=== PATIENT | female | born 1945 | race Caucasian/White ===

== ENCOUNTER 2021-06-09 13:59 | Outpatient (CLI) | payer OTHER, MEDICARE, SELFPAY ==
--- NOTE | ~2021-06-09 | DEXA_ITS ---
Bone Density Report Name: Ct Carbone I Age: 75 Sex: Female Ethnicity: White Date of : 1945 Indication: osteopenia; monitoring treatment; height loss; postmenopausal Referring Provider: Cali Bhagat Study: Bone densitometry was performed. Exam Date: June 09, 2021 Accession number: [id number] Bone Density: Region BMD T-score Z-score Classification AP Spine (L1-L4) 0.910 -1.2 1.1 Osteopenia Femoral Neck (Left) 0.670 -1.6 0.4 Osteopenia Total Hip (Left) 0.736 -1.7 0.1 Osteopenia Total Hip Bilateral Avg 0.711 -1.9 -0.2 Osteopenia Femoral Neck (Right) 0.655 -1.7 0.3 Osteopenia Total Hip (Right) 0.685 -2.1 -0.4 Osteopenia World Health Organization criteria for BMD impression classify patients as: Normal (T-score at or above -1.0), Osteopenia (T-score between -1.0 and -2.5), or Osteoporosis (T-score at or below -2.5). 10-year Fracture Risk: FRAX not reported because: Treated for osteoporosis Previous Exams: Region Exam Age BMD T-score BMD Change BMD Change Date g/cm2 vs Baseline vs Previous AP Spine(L1-L4) 06/09/2021 75 0.910 -1.2 0.025(2.9%)# 0.052(6.0%)* 05/15/2019 73 0.858 -1.7 -0.027(-3.0%)# 0.009(1.0%) 04/16/2017 71 0.850 -1.8 -0.035(-4.0%)# 0.012(1.4%) 04/12/2015 69 0.838 -1.9 -0.047(-5.3%)# -0.048(-5.4%)# 04/08/2013 67 0.886 -1.5 0.001(0.1%)# -0.048(-5.2%)# 04/06/2011 65 0.934 -1.0 0.049(5.5%)* -0.017(-1.7%) 03/24/2009 63 0.951 -0.9 0.066(7.4%)* 0.056(6.3%)* 01/10/2007 61 0.894 -1.4 0.009(1.0%) 0.009(1.0%) 06/13/2004 58 0.885 -1.5 Total Hip(Left) 06/09/2021 75 0.736 -1.7 0.036(5.1%)# 0.046(6.6%)* 05/15/2019 73 0.691 -2.1 -0.010(-1.4%)# -0.025(-3.5%) 04/16/2017 71 0.716 -1.9 0.015(2.1%)# -0.007(-0.9%) 04/12/2015 69 0.722 -1.8 0.022(3.1%)# 0.017(2.4%)# 04/08/2013 67 0.706 -1.9 0.005(0.7%)# 0.017(2.5%)# 04/06/2011 65 0.689 -2.1 -0.012(-1.7%) -0.017(-2.4%) 03/24/2009 63 0.705 -1.9 0.005(0.7%) 0.028(4.1%)* 01/10/2007 61 0.677 -2.2 -0.023(-3.3%) -0.023(-3.3%) 06/13/2004 58 0.701 -2.0 Total Hip(Right) 06/09/2021 75 0.685 -2.1 0.024(3.6%)# 0.004(0.6%) 05/15/2019 73 0.681 -2.1 0.020(3.0%)# 0.010(1.6%) 04/16/2017 71 0.671 -2.2 0.010(1.5%)# 0.001(0.2%) 04/12/2015 69 0.670 -2.2 0.008(1.3%)# 0.003(0.5%)# 04/08/2013 67 0.666 -2.3 0.005(0.8%)# 0.001(0.2%)# 04/06/2011 65 0.665 -2.3 0.004(0.6%) -0.043(-6.1%)* 03/24/2009 63 0.708 -1.9 0.047(7.0%)* 0.066(10.2%)* 01/10/2007 61 0.642 -2.5 -0.019(-2.9%) -0.019(-2.9%)
== END 2021-06-09 14:00 | disposition home or self-care (01) ==
LOC: ANHIMG 14:01
PROVIDERS: PCP Family Medicine; Visit Provider Physician Assistant
DX: M81.0 Age-related osteoporosis without current pathological fracture (principal); M85.88 Other specified disorders of bone density and structure, other site; M85.852 Other specified disorders of bone density and structure, left thigh; M85.851 Other specified disorders of bone density and structure, right thigh
CPT/HCPCS: 77080

== ENCOUNTER 2021-12-16 09:30 | Outpatient (CLI) | payer OTHER, MEDICARE, SELFPAY ==
[2021-12-16 09:43] LABS: Basophils Percent Auto 0.9 % (0.2-1.2); Eosinophils Absolute Auto 0.1 K/mm3 (0-0.3); Eosinophils Percent Auto 2.1 % (0-4.4); Hematocrit 42.2 % (37.0-47.0); Hemoglobin 13.4 g/dL (12.0-15.0); Lymphocytes Absolute Auto 1.34 K/mm3 (0.9-3.2); Lymphocytes Percent Auto 40.2 % (18.3-44.2); Mean Corpuscular HGB Conc 31.8 g/dl (32-36); Mean Corpuscular Hemoglobin 32.4 pg (26-34); Mean Corpuscular Volume 101.9 fl (80-100); Monocytes Absolute Auto 0.4 K/mm3 (0.1-0.6); Monocytes Percent Auto 10.5 % (2.6-8.5); Neutrophils Absolute Auto 1.5 K/mm3 (1.3-6.7); Neutrophils Percent Auto 46.3 % (45.5-73.1); Platelet Count Result 184 k/mm3 (150-375); Red Blood Count 4.14 M/mm3 (4.2-5.4); Red Cell Distribution Width 13.3 % (11.5-14.5); White Blood Count 3.3 K/mm3 (4.5-10.0)
[2021-12-16 10:05] LABS: Alanine Aminotransferase 28 U/L (4-35); Albumin Level 4.1 g/dL (3.5-5.1); Alkaline Phosphatase 46 U/L (38-126); Anion Gap 3 mmol/L (8-16); Aspartate Amino Transferase 54 U/L (14-36); Bilirubin,Total 0.4 mg/dL (0.2-1.3); Blood Urea Nitrogen 13 mg/dL (7-17); Carbon Dioxide 30 mmol/L (22-30); Chloride 101 mmol/L (98-107); Cholesterol 189 mg/dL (0-200); Estimated Glomerular Filt Rate > 60; Glucose 84 mg/dL (65-110); HDL Direct 82 mg/dL; Potassium 4.2 mmol/L (3.4-5.0); Sodium 134 mmol/L (137-145); Triglycerides 60 mg/dL (<150)
[2021-12-16 10:16] LABS: LDL Cholesterol Direct 73 mg/dL
== END 2021-12-16 09:31 | disposition home or self-care (01) ==
LOC: ANHLAB 09:33
PROVIDERS: Physician Assistant; PCP Family Medicine; Visit Provider Internal Medicine Hematology & Oncology
DX: E07.9 Disorder of thyroid, unspecified (principal); I10 Essential (primary) hypertension; Z79.899 Other long term (current) drug therapy
CPT/HCPCS: 36415; 80053; 80061; 84443; 85025

== ENCOUNTER → 2022-05-09 10:40 | Outpatient (CLI) | payer OTHER, MEDICARE, SELFPAY ==
--- NOTE | ~2022-05-09 | US_ITS ---
EXAMINATION: US thyroid DATE: 05/09/2022 11:05 INDICATION: Nontoxic single thyroid nodule. TECHNIQUE: Multiple ultrasound images of the thyroid were obtained. COMPARISON: Ultrasound 10/28/2019 FINDINGS: The right thyroid lobe measures 3.5 x 1.2 x 1.2 cm. The left thyroid lobe measures 3.2 x 1.2 x 1.1 c m. In the right thyroid lobe, there is a 5 mm predominantly cystic nodule (TI-RADS TR1). In the left thyroid lobe, there is a 17 mm solid, hypoechoic, wider than tall nodule with lobulated margin witho ut echogenic foci (TR4). IMPRESSION: 1. Stable left thyroid nodule. By report, an outside biopsy was benign. Reviewed, dictated and finalized at location A.
== END ==
PROVIDERS: PCP Physician Assistant; Visit Provider Physician Assistant
DX: E04.1 Nontoxic single thyroid nodule (principal)
CPT/HCPCS: 76536

== ENCOUNTER 2022-06-19 08:53 | Outpatient (CLI) | payer OTHER, MEDICARE, SELFPAY ==
[2022-06-19 18:24] LABS: Basophils Absolute Auto 0.1 K/mm3 (0.0-0.1); Basophils Percent Auto 1.5 % (0.2-1.2); Eosinophils Absolute Auto 0.1 K/mm3 (0-0.3); Eosinophils Percent Auto 1.5 % (0-4.4); Hematocrit 37.8 % (37.0-47.0); Hemoglobin 12.3 g/dL (12.0-15.0); Lymphocytes Absolute Auto 1.32 K/mm3 (0.9-3.2); Lymphocytes Percent Auto 38.5 % (18.3-44.2); Mean Corpuscular HGB Conc 32.5 g/dl (32-36); Mean Corpuscular Hemoglobin 31.8 pg (26-34); Mean Corpuscular Volume 97.7 fl (80-100); Mean Platelet Volume 10.7 fl (7.4-10.4); Monocytes Absolute Auto 0.4 K/mm3 (0.1-0.6); Monocytes Percent Auto 11.1 % (2.6-8.5); Neutrophils Absolute Auto 1.6 K/mm3 (1.3-6.7); Neutrophils Percent Auto 47.4 % (45.5-73.1); Platelet Count Result 206 k/mm3 (150-375); Red Blood Count 3.87 M/mm3 (4.2-5.4); Red Cell Distribution Width 13.6 % (11.5-14.5); White Blood Count 3.4 K/mm3 (4.5-10.0)
[2022-06-19 19:21] LABS: Alanine Aminotransferase 25 U/L (6-35); Albumin Level 3.8 g/dL (3.5-5.1); Alkaline Phosphatase 48 U/L (38-126); Anion Gap 7 mmol/L (8-16); Aspartate Amino Transferase 45 U/L (14-36); Bilirubin,Total 0.5 mg/dL (0.2-1.3); Blood Urea Nitrogen 11 mg/dL (7-17); Calcium 9.1 mg/dL (8.4-10.2); Carbon Dioxide 30 mmol/L (22-30); Chloride 98 mmol/L (98-107); Estimated Glomerular Filt Rate > 60; Glucose 82 mg/dL (65-110); Potassium 4.1 mmol/L (3.4-5.0); Sodium 135 mmol/L (137-145)
== END 2022-06-19 08:54 | disposition home or self-care (01) ==
LOC: ANHGOSHLAB 08:57
PROVIDERS: PCP Physician Assistant; Visit Provider Physician Assistant
DX: D72.819 Decreased white blood cell count, unspecified (principal); M85.80 Other specified disorders of bone density and structure, unspecified site
CPT/HCPCS: 36415; 80053; 85025

== ENCOUNTER → 2023-04-02 14:30 | Outpatient (CLI) | payer OTHER, MEDICARE, SELFPAY ==
--- NOTE | ~2023-04-02 | XR_ITS ---
XR foot RT min 3V 04/02/2023 15:16 Indication: Right foot pain Procedure: 4 views right foot Comparison: No prior studies for comparison. Findings: There is a nondisplaced distal shaft fracture of the second metatarsal. No significant soft tissue abnormality. Osteopenia. Lisfranc joint intact. No foreign bodies. Impression: 1: Nondisplaced fracture distal aspect of the right second metatarsal. Reviewed, dictated and finalized at location L. Impression: 1: Nondisplaced fracture distal aspect of the right second metatarsal.
== END ==
PROVIDERS: PCP Family Medicine; Visit Provider Physician Assistant
DX: S92.324A Nondisplaced fracture of second metatarsal bone, right foot, initial encounter for closed fracture (principal); X58.XXXA Exposure to other specified factors, initial encounter
CPT/HCPCS: 73630

== ENCOUNTER → 2023-04-16 07:57 | Outpatient (CLI) | payer OTHER, MEDICARE, SELFPAY ==
--- NOTE | ~2023-04-16 | XR_ITS ---
Right foot Technique: AP, oblique, and lateral views were obtained. Clinical History: Fracture COMPARISON: 04/02/2023 Findings: Transverse fracture the distal second metatarsal shaft again present. There is mild increas ed lateral displacement distal fracture fragment with probable early callus formation. Remaining osse ous structures appear intact.. Joint spaces are preserved without erosive or degenerative change. Sof t tissues are unremarkable. Impression: Healing transverse fracture the distal second metatarsal shaft, now with mildly increased lateral dis placement of the distal fracture fragment. Reviewed, dictated and finalized at location M. Impression: Healing transverse fracture the distal second metatarsal shaft, now with mildly increased lateral displacement of the distal fracture fragment.
== END ==
PROVIDERS: PCP Family Medicine; Visit Provider Physician Assistant
DX: S92.321D Displaced fracture of second metatarsal bone, right foot, subsequent encounter for fracture with routine healing (principal); X58.XXXD Exposure to other specified factors, subsequent encounter
CPT/HCPCS: 73630

== ENCOUNTER → 2023-04-30 07:59 | Outpatient (CLI) | payer OTHER, MEDICARE, SELFPAY ==
--- NOTE | ~2023-04-30 | XR_ITS ---
EXAMINATION: XR foot RT min 3V DATE: 04/30/2023 09:36 INDICATION: Displaced fracture of the second metatarsal, follow-up TECHNIQUE: Dorsoplantar, lateral, and 2 oblique views of the right foot were obtained. COMPARISON: 04/16/2023 FINDINGS: There is a transverse fracture in the distal second metatarsal shaft with continued increas e in calcified callus. One cortical width of lateral displacement of the distal fracture fragment per sists. No additional fracture is identified. There is mild osteoarthritis of multiple interphalangeal joints. IMPRESSION: 1. Transverse fracture in the distal shaft of the second metatarsal with routine healing. Reviewed, dictated and finalized at location B. IMPRESSION: 1. Transverse fracture in the distal shaft of the second metatarsal with routin e healing.
== END ==
PROVIDERS: PCP Family Medicine; Visit Provider Physician Assistant
DX: S92.323D Displaced fracture of second metatarsal bone, unspecified foot, subsequent encounter for fracture with routine healing (principal); X58.XXXD Exposure to other specified factors, subsequent encounter
CPT/HCPCS: 73630

== ENCOUNTER 2023-06-21 12:54 | Outpatient (CLI) | payer OTHER, MEDICARE, SELFPAY ==
--- NOTE | ~2023-06-21 | DEXA_ITS ---
Bone Density Report Name: LISBETH CORADO I Age: 77 Sex: Female Ethnicity: White Date of : 1945 Indication: osteopenia; monitoring treatment; height loss; prior fracture; postmenopausal Referring Provider: JESSIKA AVENDAÑO Study: Bone densitometry was performed. Exam Date: June 21, 2023 Accession number: [id number] Bone Density: Region BMD T-score Z-score Classification AP Spine(L1-L4) 0.950 -0.9 1.6 Normal Femoral Neck (Left) 0.673 -1.6 0.6 Osteopenia Total Hip (Left) 0.691 -2.1 -0.2 Osteopenia Femoral Neck (Right) 0.622 -2.0 0.1 Osteopenia Total Hip (Right) 0.650 -2.4 -0.5 Osteopenia Total Hip Mean 0.671 -2.3 -0.4 Osteopenia World Health Organization criteria for BMD impression classify patients as: Normal (T-score at or above -1.0), Osteopenia (T-score between -1.0 and -2.5), or Osteoporosis (T-score at or below -2.5). 10-year Fracture Risk: FRAX not reported because: Treated for osteoporosis Previous Exams: Region Exam Age BMD T-score BMD Change BMD Change Date g/cm2 vs Baseline vs Previous AP Spine (L1-L4) 06/21/2023 77 0.950 -0.9 0.113 (13.4%)* 0.040 (4.4%)* 06/09/2021 75 0.910 -1.2 0.072 (8.6%)* 0.052 (6.0%)* 05/15/2019 73 0.858 -1.7 0.021 (2.5%) 0.009 (1.0%) 04/16/2017 71 0.850 -1.8 0.012 (1.4%) 0.012 (1.4%) 04/12/2015 69 0.838 -1.9 Total Hip(Left) 06/21/2023 77 0.691 -2.1 -0.032 (-4.4%) -0.046 (-6.2%) 06/09/2021 75 0.736 -1.7 0.014 (1.9%) 0.046 (6.6%)* 05/15/2019 73 0.691 -2.1 -0.032 (-4.4%) -0.025 (-3.5%) 04/16/2017 71 0.716 -1.9 -0.007 (-0.9%) -0.007 (-0.9%) 04/12/2015 69 0.722 -1.8 Total Hip(Right) 06/21/2023 77 0.650 -2.4 -0.019 (-2.9%) -0.035 (-5.1%) 06/09/2021 75 0.685 -2.1 0.015 (2.3%) 0.004 (0.6%) 05/15/2019 73 0.681 -2.1 0.012 (1.7%) 0.010 (1.6%) 04/16/2017 71 0.671 -2.2 0.001 (0.2%) 0.001 (0.2%) 04/12/2015 69 0.670 -2.2 *Denotes significance at 95% confidence level, LSC for AP Spine = 0.022 g/cm2, LSC for Total Hip = 0.027 g/cm2 Clinical Information Provided by Patient: Has had a low trauma fracture Is being treated for osteoporosis Has used the following medications: Prolia (i.e. denosumab), Vitamin D, Calcium Patient maximum height was 65 Menopause Age: 51 Drinks caffeinated beverages Onset of menses at age 14 Number of children 2 Impression: The patient has low bone mas
== END 2023-06-21 12:55 | disposition home or self-care (01) ==
PROVIDERS: PCP Family Medicine; Visit Provider Family Medicine
DX: M81.0 Age-related osteoporosis without current pathological fracture (principal); M85.852 Other specified disorders of bone density and structure, left thigh; M85.851 Other specified disorders of bone density and structure, right thigh
CPT/HCPCS: 77080

== ENCOUNTER 2023-08-02 08:41 | Outpatient (CLI) | payer OTHER, MEDICARE, SELFPAY ==
--- NOTE | ~2023-08-02 | MM_ITS ---
EXAMINATION: MM screening sixto BI w khushi HISTORY: Screening mammogram TECHNIQUE: Craniocaudal and mediolateral oblique 3-D tomosynthesis images were obtained and synthetic 2-D images were generated. CAD analysis was submitted and interpreted. COMPARISON: 01/13/2008 BREAST PARENCHYMAL COMPOSITION:There are scattered areas of fibroglandular density. FINDINGS: No suspicious mass, calcification, or architectural distortion are identified in either yesi ast to suggest malignancy. There has been no suspicious interval change. IMPRESSION: No mammographic evidence of malignancy. Recommend routine screening mammography in one year. BI-RADS Category 1: Negative Reviewed, dictated and finalized at location .
== END 2023-08-02 08:42 | disposition home or self-care (01) ==
PROVIDERS: PCP Family Medicine; Visit Provider Family Medicine
DX: Z12.31 Encounter for screening mammogram for malignant neoplasm of breast (principal)
CPT/HCPCS: 77063; 77067

== ENCOUNTER 2023-10-05 08:44 | Outpatient (CLI) | payer OTHER, MEDICARE, SELFPAY ==
[2023-10-05 12:17] LABS: Alanine Aminotransferase 24 U/L (6-35); Albumin Level 3.7 g/dL (3.5-5.1); Alkaline Phosphatase 51 U/L (38-126); Anion Gap 5 mmol/L (8-16); Aspartate Amino Transferase 46 U/L (14-36); Bilirubin,Total 0.5 mg/dL (0.2-1.3); Blood Urea Nitrogen 17 mg/dL (7-17); Calcium 8.7 mg/dL (8.4-10.2); Carbon Dioxide 28 mmol/L (22-30); Chloride 100 mmol/L (98-107); Cholesterol 198 mg/dL (0-200); Estimated Glomerular Filt Rate > 60; Glucose 76 mg/dL (65-110); HDL Direct 75 mg/dL; Potassium 3.9 mmol/L (3.4-5.0); Sodium 133 mmol/L (137-145); Triglycerides 61 mg/dL (<150)
[2023-10-05 12:19] LABS: Estimated Glomerular Filt Rate > 60
[2023-10-05 12:28] LABS: LDL Cholesterol Direct 91 mg/dL
[2023-10-05 12:47] LABS: Thyroid Stimulating Hormone 0.104 uIU/mL (0.465-4.680)
[2023-10-05 12:55] LABS: Hemoglobin A1C 5.3 % (<5.7)
[2023-10-05 13:11] LABS: Hepatitis C Virus Antibody Negative (Negative)
== END 2023-10-05 08:45 | disposition home or self-care (01) ==
PROVIDERS: Physician Assistant; PCP Family Medicine; Visit Provider Family Medicine
DX: D72.819 Decreased white blood cell count, unspecified (principal); E04.1 Nontoxic single thyroid nodule; F41.1 Generalized anxiety disorder; M85.80 Other specified disorders of bone density and structure, unspecified site; Z79.899 Other long term (current) drug therapy; Z11.59 Encounter for screening for other viral diseases
CPT/HCPCS: 36415; 80053; 80061; 82565; 83036; 84443; 86803

== ENCOUNTER 2023-11-14 08:25 | Outpatient (CLI) | payer OTHER, MEDICARE, SELFPAY ==
[2023-11-14 15:18] LABS: Free T4 Free Thyroxine 0.92 ng/mL (0.78-2.19)
[2023-11-14 15:37] LABS: Alanine Aminotransferase 24 U/L (6-35); Albumin Level 3.6 g/dL (3.5-5.1); Alkaline Phosphatase 47 U/L (38-126); Anion Gap 4 mmol/L (8-16); Aspartate Amino Transferase 54 U/L (14-36); Bilirubin,Total 0.5 mg/dL (0.2-1.3); Blood Urea Nitrogen 15 mg/dL (7-17); Calcium 8.6 mg/dL (8.4-10.2); Carbon Dioxide 30 mmol/L (22-30); Chloride 101 mmol/L (98-107); Estimated Glomerular Filt Rate > 60; Glucose 71 mg/dL (65-110); Potassium 4.2 mmol/L (3.4-5.0); Sodium 135 mmol/L (137-145)
== END 2023-11-14 08:26 | disposition home or self-care (01) ==
PROVIDERS: PCP Family Medicine; Visit Provider Physician Assistant
DX: R79.89 Other specified abnormal findings of blood chemistry (principal); R74.8 Abnormal levels of other serum enzymes; E04.1 Nontoxic single thyroid nodule; Z79.899 Other long term (current) drug therapy
CPT/HCPCS: 36415; 80053; 84439; 84443

== ENCOUNTER 2023-11-26 07:35 | Outpatient (CLI) | payer OTHER, MEDICARE, SELFPAY ==
--- NOTE | ~2023-11-26 | US_ITS ---
EXAMINATION: US abdomen complete DATE: 11/26/2023 09:00 INDICATION: R74.8 - Abnormal levels of other serum enzymes TECHNIQUE: Multiple grayscale and Doppler ultrasound images of the abdomen were obtained. COMPARISON: Ultrasound abdomen Limited 02/18/2015; CT abdomen pelvis 02/26/2015. FINDINGS: The visualized portions of the pancreas are normal. The liver is normal with normal echogen icity and echotexture. No surface nodularity. Normal hepatopetal flow in the main portal vein. The ga llbladder is normal with no abnormal wall thickening, pericholecystic fluid or stones. The common osvaldo e duct measures 5 mm. There was no sonographic Pham sign. The visualized portions of the aorta and inferior vena cava are normal. The right kidney measures 9.9 x 4.1 x 4.1 cm. The left kidney measures 10.3 x 4.3 x 4.1 cm. The kidne ys demonstrate normal parenchymal echogenicity. There is no hydronephrosis. The spleen is normal in a ppearance and measures 8.6 cm. IMPRESSION: Normal abdominal ultrasound findings. Reviewed, dictated and finalized at location K. [facility]
== END 2023-11-26 07:36 ==
PROVIDERS: PCP Physician Assistant; Visit Provider Physician Assistant
DX: R74.8 Abnormal levels of other serum enzymes (principal)
CPT/HCPCS: 76700

== ENCOUNTER 2024-08-08 09:19 | Outpatient (CLI) | payer OTHER, MEDICARE, SELFPAY ==
--- NOTE | ~2024-08-08 | MM_ITS ---
EXAMINATION: MM screening sixto BI w khushi HISTORY: Screening TECHNIQUE: Craniocaudal and mediolateral oblique 3-D tomosynthesis images were obtained and synthetic 2-D images were generated. CAD analysis was submitted and interpreted. COMPARISON: Comparison to multiple prior studies sequentially, with oldest reviewed study dated 01/12. BREAST PARENCHYMAL COMPOSITION: Not dense: There are scattered areas of fibroglandular density. FINDINGS: There is no evidence of suspicious mass, calcification, or architectural distortion to sugg est malignancy in either breast. There has been no suspicious interval change. IMPRESSION: 1. No mammographic evidence of malignancy. 2. Recommend routine screening mammography in one year. BI-RADS Category 1: Negative Reviewed, dictated and finalized at location B.
== END 2024-08-08 09:20 | disposition home or self-care (01) ==
LOC: ANHIMG 09:22
PROVIDERS: PCP Family Medicine; Visit Provider Family Medicine
DX: Z12.31 Encounter for screening mammogram for malignant neoplasm of breast (principal)
CPT/HCPCS: 77063; 77067

== ENCOUNTER 2024-09-16 01:26 | Day surgery (SDC) | payer OTHER, MEDICARE, SELFPAY ==
[2024-09-02 13:14] VITALS: BMI 21.9
[2024-09-16 06:30] VITALS: BP 133/73; PULSE 66; RESP 16; TEMP 36.2; O2SAT 99; BMI 21.5
[2024-09-16] MEDS: LACTATED RINGERS 1,000 ML 150 ML IV CONT (07:10)
--- NOTE | 2024-09-16 07:24 | P.PNAN_ITS ---
Anes - Initial Pre Proc Eval Procedure: Operation Date: 09/16/24 08:00 Proposed Procedures p Colonoscopy - Luca Huerta MD Date/Time: 09/16/24 07:24 Surgeon: Luca Huerta MD Pre Op Diagnosis: + Cologuard Patient Data Age: 78 Gender: F Height: 1.63 m Weight: 56.9 kg Last Vital Signs Temp 97.1 F L 09/16/24 06:30 Pulse 66 09/16/24 06:30 Resp 16 09/16/24 06:30 BP 133/73 09/16/24 06:30 Pulse Ox 99 09/16/24 06:30 O2 Del Method Room Air 09/16/24 06:30 Allergies Allergy/AdvReac Type Severity Reaction Status Date / Time cephalexin Allergy Unknown Skin Verified 09/16/24 06:40 Reaction divalproex sodium [Depakote] Allergy Unknown hallucinations Verified 09/16/24 06:40 and severe fluid retention prednisone Allergy Unknown hallucinations Verified 09/16/24 06:40 and severe fluid retention Home Medications Medication Instructions Recorded Confirmed Type aspirin 81 mg tablet,delayed 81 mg PO DAILY 09/30/19 09/16/24 History release (Adult Low Dose Aspirin) multivitamin,no-itzf-gaaqmprm 1 tablet PO DAILY 09/30/19 09/16/24 History (Complete Multivitamin tablet) calcium carb-ergocalciferol (vit 3 tablet PO DAILY 12/14/20 09/16/24 History D2) 500 mg (1,250 mg)-200 unit tablet vitamins A,C,E-yzsc-ymavll 4,296 1 cap PO BID 11/07/22 09/16/24 History mcg-226 mg-90 mg capsule (PreserVision AREDS) denosumab 60 mg/mL subcutaneous 60 mg subcut [id number] #1 mL 10/11/23 09/16/24 Rx syringe (Prolia) amlodipine 5 mg tablet 5 mg PO DAILY 12/17/23 09/16/24 History sertraline 25 mg tablet 25 mg PO DAILY #90 tabs 03/12/24 09/16/24 Rx simvastatin 10 mg tablet 10 mg PO DAILY #90 tabs 06/17/24 09/16/24 Rx mecobalamin (vitamin B12) 1,000 1,000 mcg PO DAILY 07/23/24 09/16/24 History mcg lozenges Patient hx anesthesia problems: none Family hx anesthesia problems: none Results Review: All pre-operative results and documents have been reviewed as part of the pre- operative evaluation. [facility] Past Medical History Medical History (Updated 07/23/24 @ 11:45 by Brandi Parham MD) History of diverticulosis HX: benign breast biopsy Leukopenia Loss of teeth due to extraction Surgical History Surgical History Cataract extraction status Family History Family History Sibling Family history of schizophrenia Family history of suicide Depression Family history of cardiovascular disease Father Acute myocardial infarction, Onset Age: 64 Family history of coronary artery disease Grandparent Family history of lung cancer Mother Hypertension Family history of Alzheimer's disease Social History Social History (Updated 07/17/24 @ 14:29 by Abby Robles MA) Smoking status: Never smoker Alcohol intake: current Substance use: never Substance use type: does not use Do You Feel Safe in your Home?: Yes Lack of Transportation: No Lack of Food: Never True Current Housing: I Have Housing Concerned About Future Housing: No Difficulty Paying Gas/Electric Bills: No Difficulty Paying for Meds: No Currently Unemployed: No Education: Bachelor's Degree Difficulty w/ Childcare or Family Care: No Living arrangements: with family Spiritual care concerns: No Anes - Eval Final PreProcedure Day of Procedure 09/16/24 07:24 Patient weight: normal Heart: regular rate and rhythm Lungs: clear to auscultation Airway: Mallampati scale class II Neurological: alert and oriented Last oral intake: >/= 8 hours ASA classification: III Emergent: no Anesthetic plan: proceed Anesthesia type and monitoring: general GIVS and standard monitoring Results Review: All pre-operative results and documents have been reviewed as part of the pre- operative evaluation. Informed Consent: The patient's anesthetic plan and its attendant risks and benefits were discussed with the patient/family/POA. Questions were solicited and answers provided to the satisfaction of the patient/family/POA.
--- NOTE | 2024-09-16 07:24 | PM.IMHP ---
H&P: HPI History of Present Illness Date/Time: 09/16/24 07:24 Chief Complaint: Cologuard positive Narrative: the patient was recently found to have a positive Cologuard test. Her last colonoscopy was more than 15 years ago. She is asymptomatic from a GI standpoint and has no family history of colorectal cancer. Review of Systems Review of Systems: All systems reviewed & are unremarkable except as noted in HPI and below PMFSH Past Medical History Medical History (Updated 09/16/24 @ 07:25 by Luca Huerta MD) History of diverticulosis HX: benign breast biopsy Leukopenia Loss of teeth due to extraction Surgical History Surgical History Cataract extraction status Family History Family History Sibling Family history of schizophrenia Family history of suicide Depression Family history of cardiovascular disease Father Acute myocardial infarction, Onset Age: 64 Family history of coronary artery disease Grandparent Family history of lung cancer Mother Hypertension Family history of Alzheimer's disease Social History Social History (Updated 07/17/24 @ 14:29 by Abby Robles MA) Smoking status: Never smoker Alcohol intake: current Substance use: never Substance use type: does not use Do You Feel Safe in your Home?: Yes Lack of Transportation: No Lack of Food: Never True Current Housing: I Have Housing Concerned About Future Housing: No Difficulty Paying Gas/Electric Bills: No Difficulty Paying for Meds: No Currently Unemployed: No Education: Bachelor's Degree Difficulty w/ Childcare or Family Care: No Living arrangements: with family Spiritual care concerns: No Meds Home Medications and Allergies Home Medications Medication Instructions Recorded Confirmed Type aspirin 81 mg tablet,delayed 81 mg PO DAILY 09/30/19 09/16/24 History release (Adult Low Dose Aspirin) multivitamin,on-ssdv-yujablje 1 tablet PO DAILY 09/30/19 09/16/24 History (Complete Multivitamin tablet) calcium carb-ergocalciferol (vit 3 tablet PO DAILY 12/14/20 09/16/24 History D2) 500 mg (1,250 mg)-200 unit tablet vitamins A,C,B-ignj-umxfhx 4,296 1 cap PO BID 11/07/22 09/16/24 History mcg-226 mg-90 mg capsule (PreserVision AREDS) denosumab 60 mg/mL subcutaneous 60 mg subcut [id number] #1 mL 10/11/23 09/16/24 Rx syringe (Prolia) amlodipine 5 mg tablet 5 mg PO DAILY 12/17/23 09/16/24 History sertraline 25 mg tablet 25 mg PO DAILY #90 tabs 03/12/24 09/16/24 Rx simvastatin 10 mg tablet 10 mg PO DAILY #90 tabs 06/17/24 09/16/24 Rx mecobalamin (vitamin B12) 1,000 1,000 mcg PO DAILY 07/23/24 09/16/24 History mcg lozenges Allergies Allergy/AdvReac Type Severity Reaction Status Date / Time cephalexin Allergy Unknown Skin Verified 09/16/24 06:40 Reaction divalproex sodium [Depakote] Allergy Unknown hallucinations Verified 09/16/24 06:40 and severe fluid retention prednisone Allergy Unknown hallucinations Verified 09/16/24 06:40 and severe fluid retention Vital Signs Vital Signs - 24 hr 09/16/24 06:30 Temperature 97.1 F L Pulse Rate 66 Respiratory Rate 16 Blood Pressure 133/73 Pulse Oximetry 99 Oxygen Delivery Room Air Exam Const: General: cooperative and healthy appearing Resp: Effort & Inspection: normal respiratory effort and able to speak in complete sentences Auscultation: clear to auscultation bilaterally Cardio: Rate: regular rate Rhythm: regular rhythm GI: Inspection: normal to inspection GI Palp: No No hepatosplenomegaly present Auscultation: normal bowel sounds Rectal Exam: deferred Skin: General skin exam: normal color Psych: Appearance: grossly normal Mental Status: mental status grossly normal Assessment and Plan Assessment and plan (1) Positive colorectal cancer screening using Cologuard test: Code(s): R19.5 - Other fecal abnormalities Status: Acute Plan The patient is deemed a good candidate for the procedure. Consent signed. Will proceed.
[2024-09-16 08:19] VITALS: BP 102/62; PULSE 55; RESP 17; O2SAT 100
[2024-09-16 08:29] VITALS: BP 120/69; PULSE 57; RESP 18; O2SAT 100
[2024-09-16 08:39] VITALS: BP 140/65; PULSE 58; RESP 18; O2SAT 100
== END 2024-09-16 08:55 | disposition home or self-care (01) ==
PROVIDERS: PCP Family Medicine; Referring Provider Family Medicine; Visit Provider Internal Medicine Gastroenterology
PROC: 0DJD8ZZ Inspection of Lower Intestinal Tract, Via Natural or Artificial Opening Endoscopic (ICD-10-PCS; CPT 45378; principal; 2024-09-16 08:00)
DX: D12.2 Benign neoplasm of ascending colon (principal); D72.819 Decreased white blood cell count, unspecified; Z79.82 Long term (current) use of aspirin; Z79.83 Long term (current) use of bisphosphonates; Z98.890 Other specified postprocedural states; Z87.19 Personal history of other diseases of the digestive system; Z80.1 Family history of malignant neoplasm of trachea, bronchus and lung; Z82.49 Family history of ischemic heart disease and other diseases of the circulatory system
CPT/HCPCS: 45390; 88305; J2003; J2704; J7120

== ENCOUNTER 2025-04-13 17:49 | Emergency (ER) | payer OTHER, MEDICARE, SELFPAY ==
--- NOTE | ~2025-04-13 | XR_ITS ---
HISTORY: right lateral ankle pain. stepped off curb wrong COMPARISON: None TECHNIQUE: 3 views of the right ankle were performed FINDINGS: No acute fracture or dislocation. No significant soft tissue swelling. The ankle mortise is preserved. Bone mineralization is age-appropriate. IMPRESSION: Unremarkable plain film evaluation of the right ankle, as detailed above. Reviewed, dictated and finalized at location A.
--- NOTE | 2025-04-13 17:52 | ED.LOWEXIN ---
HPI - Extremity Injury (Lower) General Chief Complaint: Extremity Injury, Lower Stated Complaint: Foot Pain Source: patient and RN notes reviewed Mode of arrival: ambulatory Limitations: no limitations History of Present Illness HPI Narrative: Patient is a 79-year-old female who presents to the [facility] with complaints of right ankle pain. Patient states that she was out walking when she stepped into a hole in the concrete. She states that she did not notice the pain initially but the more she was on her feet today, she realized how sore her ankle was. She reports a tenderness to the lateral aspect of the right ankle. There is no significant swelling or deformity. She has full range of motion with flexion and extension with mild discomfort. Distal neurovascular status intact. Sensation intact. Related Data Home Medications ?Medication ?Instructions ?Recorded ?Confirmed ?Last Taken ?Type aspirin 81 mg tablet,delayed 81 mg PO DAILY 09/30/19 11/25/24 09/14/24 History release (Adult Low Dose Aspirin) multivitamin,eb-mrjb-niwgfcsr 1 tablet PO DAILY 09/30/19 11/25/24 09/14/24 History (Complete Multivitamin tablet) calcium carb-ergocalciferol (vit 3 tablet PO DAILY 12/14/20 11/25/24 09/14/24 History D2) 500 mg (1,250 mg)-200 unit tablet vitamins A,C,X-pnno-zejshj 4,296 1 cap PO BID 11/07/22 11/25/24 09/14/24 History mcg-226 mg-90 mg capsule (PreserVision AREDS) mecobalamin (vitamin B12) 1,000 1,000 mcg PO DAILY 07/23/24 11/28/24 09/14/24 History mcg lozenges Allergies Allergy/AdvReac Type Severity Reaction Status Date / Time cephalexin Allergy Unknown Skin Verified 04/13/25 17:57 Reaction divalproex sodium (Depakote) Allergy Unknown hallucinations Verified 04/13/25 17:57 and severe fluid retention prednisone Allergy Unknown hallucinations Verified 04/13/25 17:57 and severe fluid retention Review of Systems Review of Systems: CONSTITUTIONAL: Denies fever, chills, or sweats. EYES: Denies visual changes, redness, or discharge. ENT: Denies otalgia and sore throat CARDIOVASCULAR: Denies chest pain, palpitations, or edema. RESPIRATORY: Denies cough or dyspnea. GASTROINTESTINAL: Denies abdominal pain, nausea, vomiting, or diarrhea. GENITOURINARY: Denies dysuria or hematuria. SKIN: Denies rash or itching. MUSCULOSKELETAL: Reports right ankle pain. NEUROLOGIC: Denies headache, numbness, or weakness. Pertinent positives per HPI. [facility], LAT[facility] Past Medical History Medical History History of diverticulosis Leukopenia Loss of teeth due to extraction HX: benign breast biopsy Surgical History Surgical History Cataract extraction status Family History Family History Sibling Family history of schizophrenia Family history of suicide Depression Family history of cardiovascular disease Father Acute myocardial infarction, Onset Age: 64 Family history of coronary artery disease Grandparent Family history of lung cancer Mother Hypertension Family history of Alzheimer's disease Social History Social History Smoking status: Never smoker Alcohol intake: current Substance use: never Substance use type: does not use Do You Feel Safe in your Home?: Yes Lack of Transportation: No Lack of Food: Never True Current Housing: I Have Housing Concerned About Future Housing: No Difficulty Paying Gas/Electric Bills: No Difficulty Paying for Meds: No Currently Unemployed: No Education: Bachelor's Degree Difficulty w/ Childcare or Family Care: No Living arrangements: with family Spiritual care concerns: No Comments At the time of my signature, I reviewed and agree with the nursing past medical, surgical, social, and family history. There is no relevant family history pertinent to the patient complaint. Exam Narrative: GENERAL: This is a well-nourished, well-developed patient, in no apparent distress. HEAD: normocephalic, atraumatic. EYES: Sclera clear/white. Vision is grossly intact. EARS: External ears normal. Hearing grossly intact. NOSE: External nose normal with no obvious nasal discharge, nares without redness, no rhinorrhea. THROAT: Mucous membranes moist, posterior pharynx clear. NECK: Neck supple, non-tender without lymphadenopathy, masses or thyromegaly. CARDIOVASCULAR: Regular rate and rhythm without murmurs, gallops, or rubs. RESPIRATORY: Clear to auscultation. Breath sounds equal bilaterally. No wheezes, rales, or rhonchi. GASTROINTESTINAL: Abdomen soft, non-tender, nondistended. Bowel sounds are active. No hepato-splenomegaly, or palpable masses. No guarding. SKIN: warm, intact with no suspicious lesions or rash, good texture and turgor. NEURO: awake, alert, and oriented to person, place and time. There were no obvious focal neurologic abnormalities. EXTREMITIES: Tenderness to right lateral ankle. No swelling. Full range of motion with flexion/extension with mild discomfort. Distal neurovascular and motor status intact. Course Course Level of Care: Express Care Visit Vital Signs Vital signs: Vital Signs Temperature 98.8 F 04/13/25 17:55 Pulse Rate 63 04/13/25 17:55 Respiratory Rate 16 04/13/25 17:55 Blood Pressure 173/94 H 04/13/25 17:55 Pulse Oximetry 99 04/13/25 17:55 Oxygen Delivery Room Air 04/13/25 17:55 Temperature 98.8 F 04/13/25 17:55 Pulse Rate 63 04/13/25 17:55 Respiratory Rate 16 04/13/25 17:55 Blood Pressure 173/94 H 04/13/25 17:55 Pulse Oximetry 99 04/13/25 17:55 Oxygen Delivery Room Air 04/13/25 17:55 Reviewed MDM - Extremity Injury (Lower) MDM Narrative Medical decision making narrative: Use the RICE method at home. May take ibuprofen and/or Tylenol if needed. If symptoms persist in 1 week after conservative treatment, follow-up with specialist. Differential Diagnosis Differential diagnosis: Likely ankle sprain and strain, ankle fracture and other (foot fracture, foot sprain) Imaging Data Attestation: I personally reviewed and interpreted this imaging study as follows: Radiologist's impression: [facility] [address] [place] [address] XRay Report Signed Patient: Ct Carbone I : 1945 MR#: [id number] Age: 79 Acct:[id number] Loc: [facility] ADM Date: 04/13/25Attending Dr: Ordering Physician: Kia Blanchard APRN Date of Service: 04/13/25 Procedure(s): XR ankle RT min 3V Accession Number(s): [id number] cc: Kia Blanchard APRN; FIRE EQUIPMENT INSPECTOR HELPER PHYSICIAN~ HISTORY: right lateral ankle pain. stepped off curb wrong COMPARISON: None TECHNIQUE: 3 views of the right ankle were performed FINDINGS: No acute fracture or dislocation. No significant soft tissue swelling. The ankle mortise is preserved. Bone mineralization is age-appropriate. IMPRESSION: Unremarkable plain film evaluation of the right ankle, as detailed above. Reviewed, dictated and finalized at location A. Please be advised this is a medical document. It is intended for nuuq-jn-znoe communication. It is written in medical language and may contain unfamiliar abbreviations or verbiage. Medical documents are intended to carry relevant information, facts as evident, and the clinical opinion of the practitioner at the time of the encounter. This report may have been done utilizing a voice recognition system. Attempts have been made to correct errors. However, there may be uncorrected grammatical, spelling, and recognition errors present. The file time of this note does not necessarily represent the time of service. Dictated By: Verna Isbell MD 04/13/25 1819 Signed By: <Electronically signed by Verna Isbell MD in OV> 04/13/25 1820 Critical Care Time Critical Care Time Critical Care Time: No Discharge Plan Discharge Clinical Impression: Right ankle sprain Qualifiers: Encounter type: initial encounter Involved ligament of ankle: unspecified ligament Qualified Code(s): S93.401A - Sprain of unspecified ligament of right ankle, initial encounter Patient Disposition: Home Condition: Stable Instructions: Ankle Sprain (ED), P.R.I.C.E. Treatment (ED) Additional Instructions: Use the RICE method at home. May take ibuprofen and/or Tylenol if needed. If symptoms persist in 1 week after conservative treatment, follow-up with specialist. Patient Language: Tunisian Prescriptions: No Action Calcium 500 with Vitamin D2 500 mg(1,250mg) -200 unit Tablet 3 tablet PO DAILY PreserVision AREDS [id number] efox-jn-wsfa capsule 1 cap PO BID aspirin [Adult Low Dose Aspirin] 81 mg tablet,delayed release (DR/EC) 81 mg PO DAILY Complete Multivitamin Tablet 1 tablet PO DAILY Prolia 60 mg/mL syringe 60 mg SUB-Q [id number] Qty: 1 1RF mecobalamin (vitamin B12) 1,000 mcg lozenge 1,000 mcg PO DAILY Rx Instructions: allow to dissolve in mouth OR may chew lightly before swallowing simvastatin 10 mg tablet 10 mg PO DAILY Qty: 90 3RF amlodipine 5 mg tablet 5 mg PO DAILY Qty: 90 1RF sertraline 25 mg tablet 25 mg PO DAILY Qty: 90 3RF Follow-up/Referrals: PHYSICIAN,FIRE EQUIPMENT INSPECTOR HELPER [Primary Care Provider] - Time of Disposition: 18:29
[2025-04-13 17:55] VITALS: BP 173/94; PULSE 63; RESP 16; TEMP 37.1; O2SAT 99
== END 2025-04-13 18:32 | disposition home or self-care (01) ==
PROVIDERS: Emergency Provider Nurse Practitioner
DX: S93.401A Sprain of unspecified ligament of right ankle, initial encounter (principal); W17.2XXA Fall into hole, initial encounter
CPT/HCPCS: 73610; 99213; G0463

== ENCOUNTER 2025-08-10 08:47 | Outpatient (CLI) | payer OTHER, MEDICARE, SELFPAY ==
--- NOTE | ~2025-08-10 | MM_ITS ---
EXAMINATION: MM screening [facility] BI w khushi HISTORY: Screening TECHNIQUE: Craniocaudal and mediolateral oblique 3-D tomosynthesis images were obtained and synthetic 2-D images were generated. CAD analysis was submitted and interpreted. COMPARISON: Comparison to multiple prior studies sequentially, with oldest reviewed study dated 08/02/2023. BREAST PARENCHYMAL COMPOSITION: Not dense: There are scattered areas of fibroglandular density. FINDINGS: There is no evidence of suspicious mass, calcification, or architectural distortion to suggest malignancy in either breast. There has been no suspicious interval change. IMPRESSION: 1. No mammographic evidence of malignancy. 2. Recommend routine screening mammography in one year. BI-RADS Category 1: Negative Reviewed, dictated and finalized at location O.
--- OUTSIDE RECORDS SUMMARY | 2025-08-10 09:21 | XMS_ITS | Encounter Summary ---
Author Organization [facility] Address [address] [place] [address] Phone Care Team Providers Care Graining Machine Operator Name Role Phone Samantha Peterson MD Primary Care Provider Encounter Details Date Type Department Care Team (Latest Contact Info) Description 10/28/2019 Orders Only [facility] Scanning, Provider Social History Tobacco Use Types Packs/Day Years Used Date Smoking Tobacco: Never Smokeless Tobacco: Never Comments No Sex and Gender Information Value Date Recorded Sex Assigned at Not on file Legal Sex Female 3:07 AM TELEVISION JOURNALIST Gender Identity Female 02/07/2019 10:53 AM CDT Sexual Orientation Not on file documented as of this encounter Plan of Treatment Not on file documented as of this encounter Procedures Procedure Name Priority Date/Time Associated Diagnosis Comments SCAN - RADIOLOGY/IMAGING 10/28/2019 documented in this encounter Results * SCAN - RADIOLOGY/IMAGING (10/28/2019) Anatomical Region Laterality Modality Other us Provider Scanning Final Result documented in this encounter Visit Diagnoses Not on filedocumented in this encounter Care Teams Graining Machine Operator Relationship Specialty Start Date End Date Samantha Peterson MD [address] [place] [address] PCP - General 01/29/18 documented as of this encounter
--- OUTSIDE RECORDS SUMMARY | 2025-08-10 09:21 | XMS_ITS | Encounter Summary ---
Author Organization [facility] Address [address] [facility] [place] [address] Phone Care Team Providers Care Marketing Mgr Name Role Phone Samantha Peterson MD Primary Care Provider Encounter Details Date Type Department Care Team (Latest Contact Info) Description 06/19/2022 Orders Only [facility] Scanning, Provider Social History Tobacco Use Types Packs/Day Years Used Date Smoking Tobacco: Never Smokeless Tobacco: Never Comments No Sex and Gender Information Value Date Recorded Sex Assigned at Not on file Legal Sex Female 3:07 AM AUTOMATION CLERK Gender Identity Female 02/07/2019 10:53 AM CDT Sexual Orientation Not on file documented as of this encounter Plan of Treatment Not on file documented as of this encounter Procedures Procedure Name Priority Date/Time Associated Diagnosis Comments SCAN - LABS 06/19/2022 documented in this encounter Results * SCAN - LABS (06/19/2022) us Provider Scanning Final Result documented in this encounter Visit Diagnoses Not on filedocumented in this encounter Care Teams Marketing Mgr Relationship Specialty Start Date End Date Samantha Peterson MD [address] [place] [address] PCP - General 01/29/18 documented as of this encounter
--- OUTSIDE RECORDS SUMMARY | 2025-08-10 09:21 | XMS_ITS | Clinical Summary ---
Author Organization [facility] Address [address] [place] [address] Care Team Providers Care Director Of Casework Department Name Role Phone Samantha Peterson MD Primary Care Provider [phone] Allergies Active Allergy Reactions Criticality Noted Date Comments Prednisone Edema Medium 02/07/2019 Medications multivit-minera ls/ferrous fum (MULTI VITAMIN ORAL) Active aspirin 81 mg enteric coated tablet Take 81 mg by mouth daily Active sertraline (ZOLOFT) 25 mg tablet Take 25 mg by mouth daily Active simvastatin (ZOCOR) 10 mg tablet Take 10 mg by mouth nightly Active lisinopril-hydr oCHLOROthiazide (PRINZIDE,ZESTO RETIC) 10-12.5 mg per tabletIndicatio ns:hypertension Take 1 tablet by mouth daily Active denosumab (PROLIA) 60 mg/mL syringe Inject under the skin once Active amLODIPine (NORVASC) 2.5 mg tablet TK 1 T PO QD 10/12/2019 Active calcium carbonate-vitam in D3 600 mg (1,500 mg)-2,500 unit capsule Take by mouth Active mv-mn/C/glutami n/lysin/kclw129 (AIRBORNE, ASCORBATE SODIUM, ORAL) Take by mouth Active vit C/vit E ac/lut/copper/z inc (PRESERVISION LUTEIN ORAL) Take by mouth Active Active Problems Problem Noted Date Diagnosed Date Encounter for screening mamm ogram for malignant neoplasm of breast 03/13/2021 Thyroid nodule 12/23/2019 Assessment & Plan (12/06/2021 4:09 PM BOBCAT DRIVER/LABOR): Benign cytology Follow up neck US this year then extend follow up interval Assessment & Plan (05/04/2020 2:09 PM CDT): 74 year-ols female with prior neck US; completed October 2019 showed left thyroid nodule 2.2 x 1 x 0.8 cm, TR4, thyroid nodule, and no prior FNA. Repeat thyroid ultrasound performed and reviewed with the patient (see procedure note). The left thyroid nodule met the HELEN guidelines for biopsy/fine-needle aspiration Patient clinically and biochemically euthyroid We discussed the procedure of fine-needle aspiration, risk and benefit, patient is willing to proceed Discussed potential results including benign, malignant, AUS/FLUS, and suspicious I handed the patient an education brochure detailing thyroid nodule and fine- needle aspiration Discussed natural history and course of follow-up of thyroid nodules Recommendation: Plan follow-up in 6 months, with neck ultrasound and thyroid function test Assessment & Plan (12/23/2019 4:35 PM BOBCAT DRIVER/LABOR): We reviewed the ultrasound images with the patient. The left thyroid nodule meet the HELEN guidelines for biopsy/fine-needle aspiration Patient is a clinically and biochemically euthyroid We discussed the procedure of fine-needle aspiration, risk and benefit, patient is willing to proceed. Scheduled to return in 2 weeks Discussed potential results including benign, malignant, AUS/FLUS, and suspicious I handed the patient an education brochure detailing thyroid nodule and fine- needle aspiration Discussed natural history and course of follow-up of thyroid nodules Thyroid disorder 12/23/2019 History of abnormal mammogram 02/07/2019 Abnormal mammogram 04/13/2010 Social History Tobacco Use Types Packs/Day Years Used Date Smoking Tobacco: Never Smokeless Tobacco: Never Personal Safety Answer Date Recorded Getting School Help Needed Not on file 11/29 Comments No Sex and Gender Information Value Date Recorded Sex Assigned at Not on file Legal Sex Female 3:07 AM BOBCAT DRIVER/LABOR Gender Identity Female 02/07/2019 10:53 AM CDT Sexual Orientation Not on file Obstetrics History Last Filed Vital Signs Vital Sign Reading Time Taken Comments Blood Pressure 169/95 05/04/2020 9:28 AM CDT Pulse 70 05/04/2020 9:28 AM CDT Temperature 37 C (98.6 F) 12/06/2021 1:47 PM BOBCAT DRIVER/LABOR Respiratory Rate - - Oxygen Saturation - - Inhaled Oxygen Concentration - - Weight 59 kg (130 lb) 12/06/2021 1:47 PM BOBCAT DRIVER/LABOR Height 162.6 cm (5' 4) 12/06/2021 1:47 PM BOBCAT DRIVER/LABOR Body Mass Index 22.31 12/06/2021 1:47 PM BOBCAT DRIVER/LABOR Plan of Treatment Not on file Insurance MEDICARE [facility]PPO Address: [address] [address] [place] [address] [employer] MEDICARE [facility] CHOICE [facility]US [facility]/PPO Address: [address] [address] [place] [address] [employer] MEDICARE FOR LIFE [facility] CHOICE [facility] H[facility]/PPO Address: [address] [address] [place] [address] Care Teams Director Of Casework Department Relationship Specialty Start Date End Date Samantha Peterson MD [address] [place] [address] PCP - General 01/29/18
== END 2025-08-10 08:48 | disposition home or self-care (01) ==
PROVIDERS: PCP Family Medicine; Visit Provider Family Medicine
DX: Z12.31 Encounter for screening mammogram for malignant neoplasm of breast (principal)
CPT/HCPCS: 77063; 77067

== ENCOUNTER 2025-10-01 12:41 | Outpatient (CLI) | payer MEDICARE, OTHER, SELFPAY ==
--- NOTE | ~2025-10-01 | DEXA_ITS ---
Bone Density Report Name: LISBETH CORADO I Age: 79 Sex: Female Ethnicity: White Date of : 1945 Indication: osteopenia; monitoring treatment; height loss; prior fracture; Referring Provider: JESSIKA AVENDAÑO Study: Bone densitometry was performed. Exam Date: October 01, 2025 Accession number: [id number] Bone Density: Region BMD T-score Z-score Classification AP Spine(L1, L2, L3) 0.982 -0.3 2.2 Normal Femoral Neck (Left) 0.694 -1.4 0.9 Osteopenia Total Hip (Left) 0.765 -1.5 0.5 Osteopenia Femoral Neck (Right) 0.667 -1.6 0.6 Osteopenia Total Hip (Right) 0.723 -1.8 0.2 Osteopenia Total Hip Mean 0.744 -1.7 0.4 Osteopenia World Health Organization criteria for BMD impression classify patients as: Normal (T-score at or above -1.0), Osteopenia (T-score between -1.0 and -2.5), or Osteoporosis (T-score at or below -2.5). 10-year Fracture Risk: FRAX not reported because: Treated for osteoporosis Previous Exams: Region Exam Age BMD T-score BMD Change BMD Change Date g/cm2 vs Baseline vs Previous AP Spine (L1-L3) 10/01/2025 79 0.982 -0.3 0.145 (17.4%)* 0.065 (7.1%)* 06/21/2023 77 0.916 -0.9 0.080 (9.6%)* 0.025 (2.8%)* 06/09/2021 75 0.892 -1.1 0.055 (6.6%)* 0.038 (4.4%)* 05/15/2019 73 0.854 -1.5 0.018 (2.1%) 0.007 (0.8%) 04/16/2017 71 0.847 -1.6 0.011 (1.3%) 0.011 (1.3%) 04/12/2015 69 0.836 -1.7 Total Hip(Left) 10/01/2025 79 0.765 -1.5 0.043 (5.9%)* 0.074 (10.8%)* 06/21/2023 77 0.691 -2.1 -0.032 (-4.4%) -0.046 (-6.2%) 06/09/2021 75 0.736 -1.7 0.014 (1.9%) 0.046 (6.6%)* 05/15/2019 73 0.691 -2.1 -0.032 (-4.4%) -0.025 (-3.5%) 04/16/2017 71 0.716 -1.9 -0.007 (-0.9%) -0.007 (-0.9%) 04/12/2015 69 0.722 -1.8 Total Hip(Right) 10/01/2025 79 0.723 -1.8 0.054 (8.0%)* 0.073 (11.2%)* 06/21/2023 77 0.650 -2.4 -0.019 (-2.9%) -0.035 (-5.1%) 06/09/2021 75 0.685 -2.1 0.015 (2.3%) 0.004 (0.6%) 05/15/2019 73 0.681 -2.1 0.012 (1.7%) 0.010 (1.6%) 04/16/2017 71 0.671 -2.2 0.001 (0.2%) 0.001 (0.2%) 04/12/2015 69 0.670 -2.2 *Denotes significance at 95% confidence level, LSC for AP Spine = 0.022 g/cm2, LSC for Total Hip = 0.027 g/cm2 Clinical Information Provided by Patient: Has had a low trauma fracture Is being treated for osteoporosis Has used the following medications: Prolia (i.e. denosumab), Vitamin D, Calcium Patient maximum height was 65 Menopause Age: 51 Drinks caffeinated beverages Onset of menses at age 14 Number of children 2 Impression: The patient has low bone mass, based on the Right Total Hip T-score. The patient has risk factors, including: previous fracture. No significant bone loss was observed. Discussion: PATIENT UNDER TREATMENT WITH NO SIGNIFICANT BMD LOSS SINCE LAST EXAM. In an untreated patient, BMD typically declines with age. A lack of decline or gain is usually a sign that treatment is efficacious and fracture risk is reduced. It is important to ask patients whether they are taking their medications and to encourage continued and appropriate compliance with their osteoporosis therapies to reduce fracture risk. It is also important to review their risk factors and encourage appropriate calcium and vitamin D intakes, exercise, fall prevention and other lifestyle measures. Follow-Up: Consider a repeat BMD and Vertebral Fracture Assessment (VFA) exam in 2 years or sooner if medically necessary, to reassess this patient's status. Reported by: MAX on 10/01/2025 3:02:00 PM. Reviewed, dictated and finalized at location A.
== END 2025-10-01 12:42 | disposition home or self-care (01) ==
LOC: ANHFOHIMG 12:49
PROVIDERS: PCP Family Medicine; Visit Provider Family Medicine
DX: M81.0 Age-related osteoporosis without current pathological fracture (principal); M85.852 Other specified disorders of bone density and structure, left thigh; M85.851 Other specified disorders of bone density and structure, right thigh
CPT/HCPCS: 77080